=== PATIENT | female | born 1970 | race Caucasian/White ===

== ENCOUNTER 2025-05-23 09:01 | Emergency (ER) | payer BC, SELFPAY ==
[2025-05-23 09:34] VITALS: BP 110/72; PULSE 91; RESP 18; TEMP 36.8; O2SAT 97
--- NOTE | 2025-05-23 09:54 | ED.GENADULT ---
HPI - General Adult General Chief complaint: Post Op Complication Stated complaint: post op complication Time Seen by Provider: 05/23/25 09:08 History of Present Illness HPI narrative: Patient is a 54-year-old woman who approximately 2 weeks ago had bilateral breast reduction. She has no breast pain but has pain at the Carlos Enrique-Abel insertion site in the left lateral chest wall. She has surrounding erythema as well as of somewhat more opaque drainage into the Carlos Enrique-Abel itself. She has had no fevers no chills no night sweats. She does feel dehydrated and has a headache. Otherwise no other complications. Related Data Home Medications ?Medication ?Instructions ?Recorded ?Confirmed alprazolam 0.5 mg tablet PO 05/23/25 bupropion HCl 150 mg 24 hr tablet, 150 mg PO DAILY 05/23/25 05/23/25 extended release citalopram 20 mg tablet 20 mg PO DAILY 05/23/25 05/23/25 estradiol 10 mcg vaginal tablet 10 mcg vaginal 2XW 05/23/25 05/23/25 Allergies Allergy/AdvReac Type Severity Reaction Status Date / Time acetaminophen (From Vicodin) AdvReac Intermediate Vomiting Verified 05/23/25 09:40 hydrocodone (From Vicodin) AdvReac Intermediate Vomiting Verified 05/23/25 09:40 Review of Systems Status of ROS: Reports: 10 or more systems reviewed and unremarkable except as noted in History and below PFSH [facility] Social History Smoking Status: Former smoker How often do you have a drink containing alcohol: 2-4 times a month AUDIT-C Alcohol total score: 2 Non-prescribed substance use: denies use Exam Narrative: Exam Narrative: EXAM GENERAL: Patient appears comfortable and well. EYES: No scleral icterus. LYMPH: No supraclavicular or cervical lymphadenopathy. SKIN: Visible skin seen during exam normal or with benign process only. EXT: No dependent lower extremity pedal edema. HEART: Regular rate and rhythm with no murmurs, rubs, or gallops. LUNGS: Clear to auscultation bilaterally with no crackles or wheezes. ABD: Soft, non tender, non distended. PSYCH: Good eye contact, speech is not pressured. Chest exam shows intact surgical sites of the breast bilaterally. She has a Carlos Enrique-Abel drain on the right which appears normal the left-sided Carlos Enrique-Abel is surrounded by some minor erythema and there is a small amount of pus draining from the site. Const: Vital Signs, click to edit/add: Vital Signs - 24 hr 05/23/25 09:34 Temperature 98.3 F Pulse Rate [Pulse Oximeter] 91 Respiratory Rate 18 Blood Pressure [Ri ght Upper Arm] 110/72 Pulse Oximetry 97 Oxygen Delivery Me thod Room Air Course Course ED Course: If patient given 1 L of normal saline CBC basic metabolic panel lactate blood cultures x2 collected. Vital Signs Vital signs: Initial Vital Signs Temperature 98.3 F 05/23/25 09:34 Temperature Source Temporal Artery Scan 05/23/25 09:34 Pulse Rate 91 05/23/25 09:34 Respiratory Rate 18 05/23/25 09:34 Blood Pressure 110/72 05/23/25 09:34 Blood Pressure Mean 84 05/23/25 09:34 Blood Pressure Position Sitting 05/23/25 09:34 Pulse Oximetry 97 05/23/25 09:34 Oxygen Delivery Method Room Air 05/23/25 09:34 Vital Signs Temperature 98.3 F 05/23/25 09:34 Pulse Rate 91 05/23/25 09:34 Respiratory Rate 18 05/23/25 09:34 Blood Pressure 110/72 05/23/25 09:34 Pulse Oximetry 97 05/23/25 09:34 Oxygen Delivery Method Room Air 05/23/25 09:34 Temperature 98.3 F 05/23/25 09:34 Pulse Rate 91 05/23/25 09:34 Respiratory Rate 18 05/23/25 09:34 Blood Pressure 110/72 05/23/25 09:34 Pulse Oximetry 97 05/23/25 09:34 Oxygen Delivery Method Room Air 05/23/25 09:34 Medications Administered Medications: Generic Name Dose Route Start Last Admin Trade Name Freq PRN Reason Stop Dose Admin Sodium Chloride 1,000 mls @ 1,000 mls/hr 05/23/25 09:57 05/23/25 10:13 0.9 % Sodium Chloride 1000 Ml IV 05/23/25 10:56 1,000 mls/hr .Q1H ARON Administration Medical Decision Making MDM Narrative Medical decision making narrative: Patient is a 54-year-old woman who had breast reduction approximately 2 weeks ago. She had been doing well her Carlos Enrique-Abel are still in place and she does have some surrounding erythema on the left-sided Carlos Enrique-Abel consistent with mild cellulitis. I did culture her blood. I do see a white blood cell count [id number]. I did give her g Rocephin and will place her on 7 days of Keflex and recommend surgery/primary care follow-up this week. I do not think it is in her best interest to remove the Carlos Enrique-Abel at this time. Lab Data Labs: Lab Results 05/23/25 Range/Units 10:05 WBC 12.57 H (4.50-11.00) K/uL RBC 3.82 L (4.00-5.20) m/uL Hgb 12.0 (12.0-16.0) gm/dL Hct 35.7 (33.0-51.0) % MCV 94 (80-100) fL MCH 31 (26-34) pg MCHC 34 (32-36) gm/dL RDW Coeff of Lionel 11.6 (11.5-15.5) % Plt Count 301 (140-440) K/uL Neut % (Auto) 81.5 H (42.0-72.0) % Lymph % (Auto) 10.7 L (20-44) % Gu[place]upe % (Auto) 6.6 (0.0-11.0) % Eos % (Auto) 0.8 (0.0-7.0) % Baso % (Auto) 0.2 (0.0-3.0) % Neut # (Auto) 10.20 H (1.7-7.0) K/uL Lymph # (Auto) 1.30 (0.90-2.90) K/uL [place]upe # (Auto) 0.80 (0.00-0.90) K/UL Eos # (Auto) 0.10 (0.00-0.50) K/uL Baso # (Auto) 0.00 (0.00-0.30) K/uL Abs Immat Gran (auto) 0.00 (0.00-0.30) K/uL Imm/Tot Granulo (auto) 0.2 % Sodium 135 (135-149) mmol/L Potassium 3.9 (3.6-5.1) mmol/L Chloride 100 (96-114) mmol/L Carbon Dioxide 26 (20-32) mmol/L Anion Gap 9 (7-15) mEq/L BUN 12 (7-30) mg/dL Creatinine 0.7 (0.5-1.5) mg/dL Estimated Creat Clear 81.18 Estimated GFR 104 ml/min Glucose 137 H (60-115) mg/dL Calcium 8.6 (8.4-10.6) mg/dL Discharge Plan Discharge Clinical Impression: Cellulitis Patient Disposition: Home, Self-Care Condition: Stable Instructions: Cellulitis (ED) Additional Instructions: Keflex as directed Tylenol Motrin Rest Fluids Call your doctor this coming week to arrange follow-up. Activity Level: No Restrictions Discharge Diet: Regular Prescriptions: No Action alprazolam 0.5 mg tablet PO citalopram 20 mg tablet 20 mg PO DAILY bupropion HCl 150 mg tablet extended release 24 hr 150 mg PO DAILY estradiol 10 mcg tablet 10 mcg vaginal 2XW Follow Up/Referrals: Provider,Not a Local [Primary Care Provider, Family Practice] Stand Alone Forms: MyHealth Info Instructions
--- OUTSIDE RECORDS SUMMARY | 2025-05-23 10:11 | XMS_ITS | Clinical Summary ---
Author Organization [facility] Address [address] [place] [address] Care Team Providers Care Experimental Physicist Name Role Phone Mary Zhou MD Primary Care Provide r Allergies Active Allergy Reactions Criticality Noted Date Comments Mold Headache 12/04/2018 Snow mold Medications multivit with min-folic acid 200 mcg chew Chew by mouth. 4 Active estradioL (VAGIFEM) 10 mcg tab vaginal tabletIndication s:Atrophic vaginitis Insert 1 Tablet (10 mcg) into the vagina every Sunday and . 21 Tablet 3 4 Active ALPRAZolam 0.5 mg tabletIndication s:Anxiety disorder, unspecified type Take 1 Tablet (0.5 mg) by mouth every 12 hours if needed for Anxiety. 10 Tablet 3 5 Active citalopram 20 mg tabletIndication s:Anxiety disorder, unspecified type Take 1 Tablet (20 mg) by mouth once daily in the morning. 90 Tablet 3 5 Active buPROPion 150 mg Extended-Release tabletIndication s:Anxiety disorder, unspecified type Take 1 Tablet (150 mg) by mouth once daily in the morning. 90 Tablet 3 5 Active oxyCODONE (ROXICODONE) 5 mg immediate release tabletIndication s:S/P bilateral breast reduction Take 1 Tablet (5 mg) by mouth every 6 hours if needed for Pain. 10 Tablet 5 Active Additional Information Patient not taking.Reported on 05/20/2025 gabapentin (NEURONTIN) 300 mg capsuleIndicatio ns:S/P bilateral breast reduction Take 1 Capsule (300 mg) by mouth three times daily for 10 days. 30 Capsule 05/23/20 Active Additional Information Patient not taking.Reported on 05/20/2025 polyethylene glycol (MIRALAX; GLYCOLAX) 17 g per packet packetIndication s:S/P bilateral breast reduction Mix 17 g in liquid then take by mouth once daily for 10 days. 10 Packet 05/23/20 Active Additional Information Patient not taking.Reported on 05/20/2025 ibuprofen (ADVIL; MOTRIN) 600 mg tabletIndication s:S/P bilateral breast reduction Take 1 Tablet (600 mg) by mouth every 6 hours if needed for Pain. Maximum of 3200 mg in 24 hours. 60 Tablet Active Active Problems Problem Noted Date Diagnosed Date ASCUS of cervix with negative high risk HPV 01/2023 Overview (09/19/2022): 08/31/2022 ASCUS/HPV negative Plan: Pap and HPV due 08/2025 Alopecia 01/10/2018 Anxiety disorder 02/22/2016 Acne 12/09/2013 Resolved Problems Problem Noted Date Diagnosed Date Resolved Date Anxiety disorder 12/12/2012 02/22/2016 Anxiety state, unspecified 06/13/2011 0 12/09/2013 Encounters Date Type Department Care Team Description 05/20/2025 10:45 AM AIRLINE PILOT Office Visit [facility] [address] [address] Jahaira Esqueda MD Surgical Followup (s/p bilateral breast reduction on 05/13/25) 05/20/2025 Travel 05/19/2025 Telephone [facility] [address] [address] Jahaira Esqueda MD Drain Removal 05/14/2025 Telephone [facility] [address] [address] Jahaira Esqueda MD Surgical Followup (s/p bilateral breast reduction on 05/[address] Esqueda) 05/13/2025 8:00 AM CDT Phone Office Visit [facility] [address] [facility] [address] [place] [address] Jahaira Esqueda MD 05/13/2025 6:25 AM CDT - 05/13/2025 11:59 PM CDT Hospital Encounter Jahaira Esqueda MD 05/13/2025 Lab Requisition [facility] [phone] Jahaira Esqueda MD 05/13/2025 Orders Only [facility] [address] [place] [address] Jahaira Esqueda MD <No scans attached> 05/13/2025 Orders Only [facility] [address] [facility] [address] [place] [phone] Sheree Rubio PA <No scans attached> 05/13/2025 Travel 05/13/2025 Surgery [facility] [address] [facility] [address] [place] [address] Jahaira Esqueda MD bilateral breast reduction 04/28/2025 3:30 PM CDT Telemedicine [facility] [address] [address] Jahaira Esqueda MD 04/28/2025 Travel 04/17/2025 Telephone [facility] [address] [address] Jahaira Esqueda MD Appointment Request 04/16/2025 9:05 AM CDT Office Visit [facility] [address] [place] [address] Mary Zhou MD Pre-Op Exam (Bilateral breast reduction/05/13/25/ [facility]/Dr. Esqueda) 04/16/2025 Travel 04/13/2025 Travel from Last 3 Months Immunizations Immunization Administration Dates Next Due COVID-19 vaccine (Moderna 100mcg/0.5mL) PF, MDV 06/16/2021,07/19/2020 Influenza A (H1N1), Inactiva fauzia (Age >=3 Years) 06/02/2009 Influenza, IIV3 (Age >=3 years) 05/03/20 15,05/12/2013,05/07/2012,2010,04/28/2010,04/21/2009,09/18/2006 Influenza, IIV4 06/08/2020,04/15/2014 Influenza, Injectable, Mdck, Quadrivalent, W/preservative 05/09/2021 Tdap 08/31/2022,01/26/2011 Family History Medical History Relation Name Comments Cancer Father Venancio Elmore multiple myelo ma, age 64 Other Maternal Grandmother Osteope gopal Hyperlipidemia Mother Shantal Salgado Other Mother Shantal Salgado Osteopenia Cancer-breast Paternal Aunt 1 age 50 Cancer Paternal Aunt 2 lung Cancer-prostate Paternal Grandfather Cancer Paternal Grandmother Cancer-prostate Paternal Uncle Cancer-ovarian No Family History Relation Name Status Comments Brother Chip Alive Father Venancio Elmore Alive Maternal Grandfather Maternal Grandmother Alive Mother Shantal Salgado Alive Paternal Aunt 1 Paternal Aunt 2 Paternal Grandfather Alive Paternal Grandmother Alive Paternal Uncle Sister 1 Aruna Alive Sister 2 Lizbeth Alive Son 1 Jose Elmore Alive Son 2 Dav Elmore Alive Son 3 Greg Camilo Alive Social History Tobacco Use Types Packs/Day Years Used Date Smoking Tobacco: Former Cigarettes 1 8 0 09/11/2000 - 09/11/2008 Smokeless Tobacco: Never Tobacco Cessation:Counseling Given: Yes Alcohol Use Standard Drinks/Week Comments Yes 5 (1 standard drink = 0.6 oz pur e alcohol) 6 PHQ-2 Answer Date Recorded PHQ-2 TOTAL SCORE 0 10/02/2024 Social Connections Answer Date Recorded Do you often feel lonely or isolated from those around you? 0 10/02/2024 Alcohol Use Answer Date Recorded How often do you have a drink containing alcohol ? 3 04/16/2025 How many drinks containing a lcohol do you have on a typical day when you are drinking? 1 04/16/2025 How often do you have five or more drinks on one occasion? 0 04/16/2025 Financial Resource Strain Answer Date R ecorded Difficulty of Paying Living Expenses 3 10/02/2024 Difficulty of Paying Living Expenses Not on file 10/02/2024 Food Insecurity Answer Date Recorded Do you worry your food will run out before you are able to buy more? 1 10/02/2024 Transportation Needs Answer Date Record ed Does lack of transportation keep you from medica l appointments? 1 10/02/2024 Does lack of transportation keep you from work, meetings or getting things that you need? 1 10/02/2024 Housing Stability Answer Date Recorded What is your housing situation today? 1 10/02/2024 Utilities Answer Date Recorded Do you have trouble paying f or utilities (for example, heat, electricity, water, phone)? 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 Not on file Not on file Obstetrics History Para Term AB IAB SAB Ectopic Multiple Livin g Live Births 3 3 3 3 Date Outcome GA Total Labor Labor/2nd/3rd Weight Sex Type Anes PTL Nighat A1 A5 Name Clin Term Term Term Last Filed Vital Signs Vital Sign Reading Time Taken Comments Blood Pressure 116/76 05/20/2025 10:55 AM AIRLINE PILOT Pulse 76 05/20/2025 10:55 AM AIRLINE PILOT Temperature 36.6 C (97.9 F) 05/20/2025 10:55 AM AIRLINE PILOT Respiratory Rate 14 08/13/2014 11:00 AM AIRLINE PILOT Oxygen Saturation 98% 05/20/2025 10:55 AM AIRLINE PILOT Inhaled Oxygen Concentration - - Weight 79.8 kg (176 lb) 04/16/2025 9:22 AM CDT Height 163 cm (5' 4.17) 12/10/2024 9:27 AM CDT Body Mass Index 30.05 12/10/2024 9:27 AM CDT Plan of Treatment Upcoming Encounters Date Type Department Care Team (Late st Contact Info) Description 06/16/2025 2:15 PM AIRLINE PILOT Office Visit [facility] [address] [phone] Jahaira Esqueda MD [address] [address] Health Maintenance Due Date Last Done Comments Hepatitis B series for 19+ ( 1 of 3 - 19+ 3-dose series) 1991 Pneumococcal series for age 50+ (1 of 1 - PCV) 2022 Zoster (shingles) series for age 50+ (1 of 2) 2022 Influenza Vaccine (#1) 2025 1, 06/08/2020, 05/03/2015, Additional history exists Pap test for age 21-65 08/31/2025 3, 08/31/2022, 06/08/2020, Additional history exists Fecal testing sDNA-FIT ([place] guard) for age 45-75 09/21/2025 09/21/2022 Depression screening for age 12+ 10/02/2025 10/02/2024, 09/27/2023, 08/31/2022, Additional history exists Mammogram for age 45-75 10/06/2025 10/07/19, 10/10/2023, 09/28/2022, Additional history exists BMI (ht and wt on same day) for age 18+ 12/10/2025 12/10/2024, 10/02/2024, 09/27/2023, Additional history exists Lipids for age 45-75 09/26/2028 09/27/2023, 08/31/2022, 04/17/2019, Additional history exists Tetanus booster 08/31/2032 08/31/2022, 01/26/2011 RSV vaccine for adults or (1 - 1-dose 75+ series) 2047 HIV for age 15-65 Completed 11/30/2009 Hepatitis C screening for ag e 18-79 Completed 11/30/2009 Procedures Procedure Name Priority Date/Time Associated Diagnosis Comments LAB TRACKING EVENT Routine 05/13/2025 8: 30 AM CDT PATH TISSUE EXAM Routine 05/13/2025 8:30 AM CDT XR MAMMO ROCIO BILAT SCREEN Routine 10/06/2024 9:23 AM CDT Visit for screening mammogram LIPID PANEL W REFLEX MEASURED LDL Routine 09/27/2023 9:18 AM CDT Lipid screening SDNA-FIT EXTERNAL (COLOGUARD) Routine 09/21/2022 8:30 AM AIRLINE PILOT Screening for colon cancer HPV HIGH RISK Routine 08/31/2022 2:13 PM AIRLINE PILOT Pap smear for cervical cancer screening RAPID HIV SCREEN Routine 11/30/2009 3:11 PM CDT Exposure to body fluids by contaminated hypodermic needle stick ANTI HCV Routine 11/30/2009 3:11 PM CDT Exposure to body fluids by contaminated hypodermic needle stick SURGICAL PROCEDURE (TYPE PROCEDURE DESCRIPTION BELOW) Elective Large breasts Back pain, unspecified back location, unspecified back pain laterality, unspecified chronicity Neck pain Shoulder pain, unspecified chronicity, unspecified laterality Shoulder joint deformity, unspecified laterality from Last 3 Months or Most Recently Relevant to Health Maintenance Results * LAB TRACKING EVENT (05/13/2025 8:30 AM CDT) Other (Other) Client Collect / Unknown 05/13/2025 8:30 AM CDT 05/13/2025 5:39 PM CDT us Jahaira Esqueda MD LAB BILL ONLY Renee l Result [facility] [address] [place] [address], * PATH TISSUE EXAM (05/13/2025 8:30 AM CDT) Case Report Pathology Report Case: [id number] Authorizing Provider: Jahaira Esqueda, Collected: 05/13/2025 5495 Ordering Location: [facility] Received: 05/14/2025 1204 Pathologist: Timur Garay MD Specimens: A) - Left Breast Reduction B) - Right Breast Reduction 05/15/2025 1:56 PM CDT [facility] Final Diagnosis A) BREAST, LEFT, REDUCTION MAMMAPLASTY: 1. Breast tissue with fibrocystic changes, negative for atypia and malignancy 2. Skin with no histopathologic abnormality B) BREAST, RIGHT, REDUCTION MAMMAPLASTY: 1. Breast tissue with fibrocystic changes, negative for atypia and malignancy 2. Skin with no histopathologic abnormality 05/15/2025 1:56 PM CDT [facility] [email or web address] LABORATORY-C ENTRAL LABORATORY at 1356 CDT Clinical Information Symptomatic macromastia 05/15/2025 1:56 PM CDT [facility] [email or web address] [facility]AL LAB[facility] Gross Description A) Received in formalin, labeled with the patient's name and left breast tissue, is a 541 g (formalin fixed), 20 x 20 x 5 cm aggregate of yellow-perla fibrofatty tissue and perla smooth unremarkable skin. The specimen is serially sectioned revealing yellow-perla cut surfaces consisting of approximately 80% yellow adipose tissue and 20% perla fibrous tissue. No discrete lesions are noted. Cheese Cutter sections are submitted in 5 cassettes. Time removed from patient: 829 Time placed in formalin: 829 Date removed and placed in formalin: 05/13/2025 The specimen was fixed in formalin for a minimum of 6 hours and not longer than 72 hours. B) Received in formalin, labeled with the patient's name and right breast tissue, is a 503 g (formalin fixed), 20 x 18 x 4.5 cm aggregate of yellow-perla fibrofatty tissue and perla smooth unremarkable skin. The specimen is serially sectioned revealing yellow-perla cut surfaces consisting of approximately 80% yellow adipose tissue and 20% perla fibrous tissue. No discrete lesions are noted. Cheese Cutter sections are submitted in 5 cassettes. Time removed from patient: 829 Time placed in formalin: 829 Date removed and placed in formalin: 05/13/2025 The specimen was fixed in formalin for a minimum of 6 hours and not longer than 72 hours. LDW 05/14/2025 05/15/2025 1:56 PM CDT [employer] LABORATORY-C ENTRAL LABORATORY Microscopic Description The final diagnosis is based on microscopic examination of appropriate sections of all specimens. 05/15/2025 1:56 PM CDT [facility] Additional Information Interpreted at [facility] - [address], [place] [address] 05/15/2025 1:56 PM CDT [facility] Other (Left Breast Reduction) 05/13/2025 8:30 AM CDT 05/14/2025 5:09 AM CDT Specimen (specimen) (Right Breast Reduction) 05/13/2025 8:30 AM CDT 05/14/2025 5:09 AM CDT us Jahaira Esqueda MD PATHOLOGY/CYTOLOGY F inal Result [facility] [address] [place] [address], [place] * XR MAMMO ROCIO BILAT SCREEN (10/06/2024 9:23 AM CDT) Anatomical Region Laterality Modality BREASTS, Breast Left, Breast Right Bilateral Mammography Impressions 10/08/2024 6:41 AM CDT There is no radiographic evidence for malignancy. Recommend annual mammograms. MAMMOGRAM ASSESSMENT: ACR 1 Negative PATIENTS: You will also receive a letter with your examination results in an easy to read format. If you have questions about your results, please contact your referring provider. Narrative 10/08/2024 6:41 AM CDT For Patients: As a result of the Century Cures Act, medical imaging exams and procedure reports are released immediately into your electronic medical record. You may view this report before your referring provider. If you have questions, please contact your health care provider. XR MAMMO ROCIO BILAT SCREEN [[id number]] CLINICAL HISTORY: This is an asymptomatic 54 y.o. patient. INDICATION FOR EXAM: Mammogram Screening. TECHNIQUE: CC and MLO views were obtained. This study was evaluated with the assistance of Computer-Aided Detection. Breast Tomosynthesis was used in interpretation. COMPARISON FILM: Yes 10/10/23 [employer] 09/28/22 [facility] [employer] FINDINGS: The breasts are heterogeneously dense, which may obscure small masses. There are no dominant masses, suspicious micro calcifications or areas of architectural distortion. us Mary Zhou MD MAMMO Final Result * (ABNORMAL) LIPID PANEL W REFLEX MEASURED LDL (09/27/2023 9:18 AM CDT) CHOLESTEROL,TOTAL 275(H) 100 - 199 mg/dL 09/27/2023 4:41 PM CDT [facility] Comment: Cholesterol, Total Reference Ranges Desirable <200 mg/dL Borderline 200-239 mg/dL High >=240 mg/dL TRIGLYCERIDES 218(H) <150 mg/dL 09/27/2023 4:41 PM CDT [facility] HDL CHOLESTEROL 53 >40 mg/dL 4:41 PM CDT [facility] NON-HDL CHOLESTEROL 222(H) <145 mg/dl 09/27/2023 4:41 PM CDT [facility] CHOL/HDL RATIO 5.19(H) <4.50 09/27/2023 4:41 PM CDT [facility] LDL CHOLESTEROL 178(H) <=130 mg/dL 09/27/2023 4:41 PM CDT [facility] VLDL CHOLESTEROL 44(H) <=30 mg/dL 09/27/2023 4:41 PM CDT [facility] PROVIDER ORDERED STATUS RANDOM 09/27/2023 4:41 PM T [facility] Blood BLOOD SPECIMEN / Unknown Venipuncture / Unknown 09/27/2023 9:18 AM CDT 09/27/2023 9:19 AM CDT us Mary Zhou MD CHEMISTRY Final Result [facility] [address] [place] [address], * SDNA-FIT EXTERNAL (COLOGUARD) (09/21/2022 8:30 AM AIRLINE PILOT) NONINV COLON CA DNA+OCC BLD SCRN STL-IMP Negative Negative 09/28/2022 12:33 AM CDT [employer] (CLIA #:[id number]) Comment: NEGATIVE TEST RESULT. A negative Cologuard result indicates a low likelihood that a colorectal cancer (CRC) or advanced adenoma (adenomatous polyps with more advanced pre-malignant features) is present. The chance that a person with a negative Cologuard test has a colorectal cancer is less than 1 in 1500 (negative predictive value >99.9%) or has an advanced adenoma is less than 5.3% (negative predictive value 94.7%). These data are based on a prospective cross-sectional study of 10,000 individuals at average risk for colorectal cancer who were screened with both Cologuard and colonoscopy. (Maryann Rascon al, N Engl J Med 2014;370(14):8536-3096) The normal value (reference range) for this assay is negative. COLOGUARD RE-SCREENING RECOMMENDATION: Periodic colorectal cancer screening is an important part of preventive healthcare for asymptomatic individuals at average risk for colorectal cancer. Following a negative Cologuard result, the [place] Cancer Society and U.S. Multi-Society Task Force screening guidelines recommend a Cologuard re-screening interval of 3 years. References: [place] Cancer Society Guideline for Colorectal Cancer Screening: https://www.cancer.org/cancer/hwxlg-cdkkpz-caztff/blslsqopk-uxwguuwkb-pghtqtx/ac s-rec ommendations.html.; Ashvin TRACY, Wu NIETO, Elida DasilvaK, Colorectal Cancer Screening: Recommendations for Physicians and Patients from the U.S. Multi-Society Task Force on Colorectal Cancer Screening , Am J Gastroenterology 2017; 112:6753-6619. TEST DESCRIPTION: Composite algorithmic analysis of stool DNA-biomarkers with hemoglobin immunoassay. Quantitative values of individual biomarkers are not reportable and are not associated with individual biomarker result reference ranges. Cologuard is intended for colorectal cancer screening of adults of either sex, 45 years or older, who are at average-risk for colorectal cancer (CRC). Cologuard has been approved for use by the U.S. FDA. The performance of Cologuard was established in a cross sectional study of average-risk adults aged 50-84. Cologuard performance in patients ages 45 to 49 years was estimated by sub-group analysis of near-age groups. Colonoscopies performed for a positive result may find as the most clinically significant lesion: colorectal cancer [4.0%], advanced adenoma (including sessile serrated polyps greater than or equal to 1cm diameter) [20%] or non- advanced adenoma [31%]; or no colorectal neoplasia [45%]. These estimates are derived from a prospective cross-sectional screening study of 10,000 individuals at average risk for colorectal cancer who were screened with both Cologuard and colonoscopy. (Maryann Rascon al, N Engl J Med 2014;370(14):1096-4909.) Cologuard may produce a false negative or false positive result (no colorectal cancer or precancerous polyp present at colonoscopy follow up). A negative Cologuard test result does not guarantee the absence of CRC or advanced adenoma (pre-cancer). The current Cologuard screening interval is every 3 years. ([place] Cancer Society and U.S. Multi-Society Task Force). Cologuard performance data in a 10,000 patient pivotal study using colonoscopy as the reference method can be accessed at the following location: www.OffersBy.Me/results. Additional description of the Cologuard test process, warnings and precautions can be found at www.[employer]anaexpertog[employer]C [employer].Jalbum. Stool specimen (specimen) (Rectum) 09/21/2022 8:30 AM AIRLINE PILOT 09/22/2022 11:35 AM AIRLINE PILOT Mary Zhou MD URINE Final Result [employer] (CLIA #:[id number]) [place] [address], * HPV HIGH RISK (08/31/2022 2:13 PM AIRLINE PILOT) TYPE 16 Negative Negative 09/04/2022 2:18 PM AIRLINE PILOT [facility] TYPE 18 Negative Negative 09/04/2022 2:18 PM AIRLINE PILOT [facility] OTHER HIGH RISK TYPES Negative Negative 09/04/2022 2:18 PM AIRLINE PILOT [facility] Other (Cervical) Non-Blood / Unknown 08/31/2022 2:13 PM AIRLINE PILOT 09/01/2022 8:39 AM AIRLINE PILOT Narrative [facility] - 09/04/2022 2:18 PM AIRLINE PILOT HPV types 16, 18, 31, 33, 35, 39, 45, 51, 52, 56, 58, 59, 66 and 68 DNA were undetectable or below the pre-set threshold. Methodology: Azael Carmina 4800 HPV Test Mary Zhou MD MICROBIOLOGY Final Result [facility] [address] [place] [address], * RAPID HIV SCREEN (11/30/2009 3:11 PM CDT) [facility] RAPID HIV SCREEN Non-react zulay (Nonreact zulay) [facility] Blood specimen (specimen) BLOOD SPECIMEN / Unknown 11/30/2009 3:11 PM CDT 11/30/2009 3:02 PM CDT Gabriella BENITEZ CHEMISTRY Final R esult [facility] [place] ZIP [address] [address] * ANTI HCV (11/30/2009 3:11 PM CDT) [facility] ANTI HCV Non-reacti ve [facility] Blood specimen (specimen) BLOOD SPECIMEN / Unknown 11/30/2009 3:11 PM CDT 11/30/2009 3:02 PM CDT Gabriella BENITEZ SEND OUTS Final R esult [facility] INTERNAL ZIP [address] [address] from Last 3 Months or Most Recently Relevant to Health Maintenance Insurance [facility] [place] [facility] [employer] Care Teams Experimental Physicist Relationship Specialty Start Date End Date Mary Zhou MD [address] [place] [address] PCP - General Family Practice 06/13/11
[2025-05-23 10:20] LABS: Hematocrit* 35.7 % (33.0-51.0); Hemoglobin* 12.0 gm/dL (12.0-16.0); Immature Granulocytes Pct Auto 0.2 %; Mean Corpuscular HGB Conc 34 gm/dL (32-36); Mean Corpuscular Hemoglobin 31 pg (26-34); Mean Corpuscular Volume 94 fL (80-100); RDW Coefficient of Variation % 11.6 % (11.5-15.5); Red Blood Count* 3.82 m/uL (4.00-5.20); White Blood Count* 12.57 K/uL (4.50-11.00)
[2025-05-23 10:22] LABS: Immature Granulocytes Abs Auto 0.00 K/uL (0.00-0.30); Lymphocytes Absolute Auto 1.30 K/uL (0.90-2.90); Slide Review Reflex No
[2025-05-23 10:30] LABS: Chloride* 100 mmol/L (96-114); Potassium* 3.9 mmol/L (3.6-5.1); Sodium* 135 mmol/L (135-149)
[2025-05-23 10:33] LABS: Blood Urea Nitrogen* 12 mg/dL (7-30); Creatinine* 0.7 mg/dL (0.5-1.5); Est. Creatinine Clearance* 81.18; Estimated Glomerular Filt Rate 104 ml/min
[2025-05-23 10:34] LABS: Anion Gap 9 mEq/L (7-15); Calcium* 8.6 mg/dL (8.4-10.6); Carbon Dioxide* 26 mmol/L (20-32); Glucose* 137 mg/dL (60-115)
[2025-05-23] MEDS: CEFAZOLIN 1 GM in 0.9 % SODIUM CHLORIDE Mini-bag 100 ML IVPB (10:56)
== END 2025-05-23 11:39 | disposition home or self-care (01) ==
PROVIDERS: Emergency Provider Internal Medicine
DX: L03.313 Cellulitis of chest wall (principal); L76.82 Other postprocedural complications of skin and subcutaneous tissue; R51.9 Headache, unspecified
CPT/HCPCS: 36415; 80048; 85025; 87040; 96365; 99283; 99284; J0690; J7030